=== PATIENT | male | born 1945 | race African-American/Black ===

== ENCOUNTER 2019-05-23 16:21 | Outpatient (CLI) | payer OTHER ==
[2019-05-23 16:38] LABS: BASOPHILS % 0.7 % (0.0-1.5); NEUTROPHILS # 2.7 # k/uL (1.4-7.7)
[2019-05-23 16:55] LABS: eGFR (Non-African) > 60
== END 2019-05-23 16:26 ==
LOC: LABRHC 16:21
PROVIDERS: ATTEND Family Medicine
DX: I25.10 Atherosclerotic heart disease of native coronary artery without angina pectoris (principal); I10 Essential (primary) hypertension
CPT/HCPCS: 80053; 85025